=== PATIENT | female | born 1960 | race Caucasian/White ===

== ENCOUNTER 2016-11-22 22:11 | Emergency (ER) | payer SELFPAY ==
--- NOTE | 2016-11-30 01:20 | ER ---
ADMIT: 11/22/2016 RM/LOC: ER [facility] MR#: [id number] [facility] [address] [place] [id number] SARAHNATE VALENTINON Shnadra [address] [place] [id number] Emergency Room Report SEX: F AGE: 56 : 1960 DATE: 11/22/2016 ADDENDUM: See T-sheet for complete H and P. A 56-year-old female, comes in after she feels like her right leg gave out. She went down and struck her right knee on the kitchen at home. 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 When she went down, she states that she primarily hit her knee, but did fall onto her right side and struck her hip and her right shoulder on the floor also. She has been unable to bear weight secondary to pain and came in by EMS. On physical exam, she does have a very slight abrasion with some ecchymosis just below the patella on her right knee. I see no obvious infusion. There are no other open lacerations. She can range of motion of the knee, but does have some pain when doing so and she has some soft tissue and bony tenderness on the proximal tibia and patella. She is neurovascularly intact distally. X-rays of the right knee revealed no acute abnormality. X-rays of the right hip were also normal. She can range of motion her right shoulder without difficulty. She is diagnosed with a right knee contusion and a right hip contusion. She does normally use a walker at home and she is encouraged to use her walker for the next several days and follow up with Dr. Flores if having any persistent pain and is not getting better. Sudarshan Kirkland MD/ myrna JOB #: [id number] CC: Alton Lopez MD, Attending Physician Jorge Barksdale MD, Family Physician
[2017-01-27] MEDS ORDERED: PRAVACHOL20 MG PO (15:13)
[2017-01-27] MEDS ORDERED: SPIRIVA RESPIMAT4 GM IH (15:13)
[2017-01-27] MEDS ORDERED: LAMICTAL200 MG PO (15:14)
[2017-01-27] MEDS ORDERED: VIIBRYD20 MG PO (15:14)
[2017-01-27] MEDS ORDERED: LATUDA20 MG PO (15:14)
[2017-01-27] MEDS ORDERED: NITROSTAT0.4 MG SL (15:14)
[2017-01-27] MEDS ORDERED: ASA325 MG PO (15:14)
[2017-01-27] MEDS ORDERED: PROZAC DPS20 MG PO (15:14)
== END 2016-11-22 23:55 | disposition home or self-care (01) ==
LOC: ER 22:11
DX: S70.01XA Contusion of right hip, initial encounter (principal); S80.01XA Contusion of right knee, initial encounter; F31.9 Bipolar disorder, unspecified; F41.9 Anxiety disorder, unspecified; F17.210 Nicotine dependence, cigarettes, uncomplicated; Z79.899 Other long term (current) drug therapy; W22.8XXA Striking against or struck by other objects, initial encounter; Y92.000 Kitchen of unspecified non-institutional (private) residence as the place of occurrence of the external cause